=== PATIENT | female | born 1935 | race Caucasian/White ===

== ENCOUNTER 2016-10-17 13:31 | Observation (INO) | payer OTHER ==
[2016-10-17 13:53] LABS: BASOPHILS % 0.2 (0.0-1.5); EOSINOPHILS % 1.3 % (0.0-6.8); LYMPHOCYTES # 1.4 # k/uL (0.6-4.0); MONOCYTES # 0.3 # k/uL (0.0-0.9); MONOCYTES % 4.3 % (0.0-11.0); NEUTROPHILS # 5.2 # k/uL (1.4-7.7)
--- NOTE | 2016-10-17 14:02 | ED Physician Documentation ---
General Adult - HISTORIAN Historian: patient - HPI Chief Complaint: Neurological Deficits Additional Information: 81 yo F here for lightheadedness, numbness of UE/LE, subjective weakness to LE, L shoulder and neck pain. Symptoms started as neck pain last week, saw PCM and told to do stretches but symptom has persisted. She had mild symptoms yesterday afternoon that resolved spontaneously after 15-20min. She started to have symptoms today at about 1230. Shoulder symptoms described more as a numbness, whereas L neck has pain, dull ache. She does feel somewhat lightheaded, but denies SOB, CP, palpitations. She does have subjective weakness in b/l LE but has been ambulatory without difficulty. She has no dysarthria, confusion, LEHMAN. She has been well recently, no f/c/n/v/d. She has not fallen, denies trauma. She has had this dizziness in the past, she thinks about 6 mos ago, but never had the other symptoms before. Medical history includes HTN, HLP, breast CA s/p lumpectomy and radiation 5 years ago, no recurrence. No history of cardiac disease, stroke, blood clots, PE. All other systems reviewed and negative except per HPI. Timing: still present - ROS CONST: weakness EYES/ENT: none. denies: problems with vision, nasal congestion CVS/RESP: denies: chest pain, shortness of breath, cough GI/: denies: abdominal pain, problems urinating, vomiting, nausea, diarrhea MS/SKIN/LYMPH: neck pain. denies: calf pain, joint pain, leg swelling, leg pain NEURO/PSYCH: dizziness, tingling, numbness. denies: headache, fainting, difficulty walking, difficulty with speech - PAST HX Past History: other (HTN, HLP, Breast CA) Surgeries/Procedures: other (lumpectomy) Allergies/Adverse Reactions: Allergies Allergy/AdvReac Type Severity Reaction Status Date / Time Sulfa (Sulfonamide Allergy Verified 10/17/16 13:48 Antibiotics) Home Medications: Ambulatory Orders Medication Instructions Recorded Tamoxifen Citrate 20 mg PO DAILY u2 04/23/13 - SOCIAL HX Smoking History: non-smoker Alcohol Use: none Drug Use: none - FAMILY HX Family History: No - REVIEWED ASSESSMENTS Nursing Assessment Reviewed: Yes Vitals Reviewed: Yes ED Results Lab/Radiology - Lab Results Lab Results: Lab Results 10/17/16 13:45 WBC 7.10 K/ul K/ul (4.00-12.00) RBC 4.58 M/ul M/ul (3.90-5.20) Hgb 13.8 g/dL g/dL (12.0-16.0) Hct 41.0 % % (34.5-46.5) MCV 89.5 fl fl (80.0-100.0) MCH 30.0 pg pg (28.0-34.0) MCHC 33.6 g/dL g/dL (30.0-36.0) RDW 12.9 % % (11.3-14.3) Plt Count 193 K/mm3 K/mm3 (130-400) Neut % (Auto) 73.5 % % (39.0-79.0) Lymph % (Auto) 19.1 % % (16.0-50.0) [place] % (Auto) 4.3 % % (0.0-11.0) Eos % (Auto) 1.3 % % (0.0-6.8) Baso % (Auto) 0.2 (0.0-1.5) Neut # 5.2 # k/uL # k/uL (1.4-7.7) Lymph # 1.4 # k/uL # k/uL (0.6-4.0) Hartley # 0.3 # k/uL # k/uL (0.0-0.9) Eos # 0.1 # k/uL # k/uL (0.0-0.6) Baso # 0.0 # k/uL # k/uL (0.0-0.5) Reactive Lymphs % 1.6 % % (0.0-5.0) Reactive Lymphs # 0.1 # k/uL # k/uL (0.0-0.8) - Radiology Radiology Impressions: EKG: sinus at 99bpm. Normal axis, normal intervals. No ectopy. Biphasic T waves V3/4/5. No ST elevation, depression. CXR: neg CT head: neg - Orders Orders: ED Orders Category Date Time Status CHEST 2 VIEW [CHEST P.A.&LAT 2 VIEWS] [RAD] Stat Exams 10/17/16 13:[address] BRAIN W/O CONTRAST Stat Exams 10/17/16 Ordered CBC/PLATELET/DIFF Stat Lab 10/17/16 13:45 Completed CMP [CMP] Routine Lab 10/17/16 13:45 Received TROPONIN I (cTnI) Stat Lab 10/17/16 13:45 Received UA [URINALYSIS] Routine Lab 10/17/16 13:39 Ordered EKG WITH COMPARISON Stat Ther 10/17/16 13:39 Completed General Adult Physical Exam - PHYSICAL EXAM GENERAL APPEARANCE: no distress EENT: eye inspection normal, ENT inspection normal, pharynx normal, other ( horizontal nystagmus b/l biderectional, no vertical nystagmus.) NECK: normal inspection, thyroid normal. No: lymphadenopathy RESPIRATORY: no resp distress, chest non-tender, breath sounds normal CVS: reg rate & rhythm, heart sounds normal, equal pulses, no murmur ABDOMEN: soft, no organomegaly, normal bowel sounds, no distension, non-tender SKIN: warm/dry, normal color. No: diaphoresis EXTREMITIES: non-tender, no evidence of injury, no edema NEURO: oriented X3, CN's nml as tested, motor nml, sensation nml, mood/affect nml, cognition normal, other (normal reflexes UE/LE). No: disoriented, weakness /sensory loss, speech/cognition abnml, facial droop, sensory/motor deficit Discharge Clincal Impression: Neck pain, Numbness and tingling in both hands, Lightheaded Shoulder pain Qualifiers: Laterality: left Chronicity: acute Qualified Code(s): M25.512 - Pain in left shoulder Lower extremity weakness Qualifiers: Laterality: bilateral Qualified Code(s): R29.898 - Other symptoms and signs involving the musculoskeletal system Referrals: Mariah Ly MD [Primary Care Provider] - 2 Days Home Medications: Ambulatory Orders Tamoxifen Citrate 20 mg PO DAILY u2 04/23/13 Condition: Good Disposition: 09 ADMITTED INPATIENT Decision to Admit: [id number] Decision Time: 16:20
[2016-10-17 14:15] LABS: eGFR (African) > 60; eGFR (Non-African) > 60
--- NOTE | 2016-10-17 14:33 | Diagnostic Imaging Report ---
[facility] [address] [facility].[address] [address] Report Submission Date: Oct 17, 2016 2:16:30 PM GEOMORPHOLOGY TEACHER Patient Study Name: MACY BLANCAS Date: Oct 17, 2016 2:02:49 PM GEOMORPHOLOGY TEACHER Modality Type: CR Gender: F Description: CHEST : 33 Institution: [facility] Physician PUMA VENTURA - ER Chest -two views CLINICAL HISTORY: Lower extremity weakness and numbness. Dizziness and blurred vision. FINDINGS: Examination of the chest PA and lateral views demonstrates the lungs to be hyperinflated but clear. Cardiac silhouette is within normal limits and the aorta is atherosclerotic and tortuous. Bony thorax is intact. Monitor leads superimpose the chest. IMPRESSION: Hyperinflation. Aortic atherosclerosis. Electronically signed on Oct 17, 2016 2:16:30 PM GEOMORPHOLOGY TEACHER by: Jay HEIN
--- NOTE | 2016-10-17 14:34 | Diagnostic Imaging Report ---
[facility] [address] [facility] [address] [place] [address]. [id number] Report Submission Date: Oct 17, 2016 2:15:34 PM MINISTER OF RELIGION Patient Study Name: MACY BLANCAS Date: Oct 17, 2016 1:54:45 PM MINISTER OF RELIGION Modality Type: CT\SR Gender: F Description: CT BRAIN W/O CONTRAST : 34 Institution: [facility] Physician [facility]MA [facility]UR[facility] - TWAN Head CT without contrast CLINICAL HISTORY: Lower extremity weakness and numbness. Dizziness and blurred vision. TECHNIQUE: CT examination of the brain is performed in contiguous axial slices without the use of contrast. Sagittal and coronal reconstructions are performed by the technologist. FINDINGS: 4th ventricle lies in a normal midline position. The ventricles and sulci are within normal limits. There is no hypodense or hyperdense mass or midline shift. There is no evidence of intracranial hemorrhage. Intracranial atherosclerosis is demonstrated. Visualized paranasal sinuses and the mastoid air cells are clear. IMPRESSION: Intracranial atherosclerosis. No acute intracranial changes. Electronically signed on Oct 17, 2016 2:15:34 PM MINISTER OF RELIGION by: Jay HEIN
[2016-10-17] MEDS ORDERED: ASPIRIN 325 MG TABLET PO ONE (14:52)
[2016-10-17] MEDS ORDERED: 0.9 % SODIUM CHLORIDE 250 ML IV.SOLN IV STA (14:56)
[2016-10-17] MEDS ORDERED: 0.9 % SODIUM CHLORIDE 1,000 ML IV ONE (14:57)
[2016-10-17] MEDS ORDERED: 0.9 % SODIUM CHLORIDE 500 ML IV SCH (15:00)
[2016-10-17 15:12] LABS: APPEARANCE,URINE Clear (CLEAR); COLOR,URINE Yellow (YELLOW); OCCULT BLOOD,URINE Trace-intact (NEGATIVE); PH URINE 8.5 (5.0 - 8.0); UROBILINOGEN URINE 0.2 Eu (0.2-1.0)
[2016-10-17] MEDS: ENOXAPARIN SODIUM 30 MG/0.3 ML DISP.SYRIN SQ SCH (18:02)
[2016-10-17 18:10] VITALS: BMI 49.1
--- NOTE | 2016-10-17 19:06 | History and Physical Report ---
History of Present Illnes - History of Present Illness Reason for Visit: Intermittent left hemiparesis, chest pain History of Present Illness: This is an 81 year old female who is admitted with intermittent left arm numbness and tingling as well as some loss of motor function over the past day or so. She says that she had some difficulty with moving her left arm and that this lasted long enough that she thought that she should go to the ER to have it checked out. She has no history of CAD and no history of cerebral ischemia. Her CT scan in the ER showed only arteriosclerosis, but no ischemic changes. Her symptoms have now largely resolved, other than some chest discomfort which she describes as more of a pressure than pain. She denies any diaphoresis or radiation of the pain. - Past Medical History Cardiac: HTN. denies: AFIB, CAD, CHF, IA Pulmonary: denies: Asthma, Bronchitis METAL BONDER: denies: Dementia Gastrointestinal: GERD. denies: Constipation, Diverticulosis Heme/Onc: Other (Breast cancer). denies: Anemia NOS, B12 deficiency Hepatobiliary: denies: Cirrhosis, Cholelithiasis Psych: denies: Anxiety, Addictions, Bipolar Musculoskeletal: Osteoarthritis Rheumatologic: denies: Fibromyalgia Infectious Disease: denies: Other ENT: denies: Sinusitis Renal/: denies: Chronic renal insuff Endocrine: denies: Diabetes, Hyperthyroidism Dermatology: denies: Eczema - Past Surgical History Past Surgical History: Other (right lumpectomy) - Past Social History Smoke: No Alcohol: None Lives: Alone (multiple family members nearby) - Health Maintenance Health Maintenance: Cholesterol Influenza Vaccine: Current for this Influenza Season Pneumonia Vaccine: Yes Resuscitation Status: Resusciation Status Resuscitation Status Full Code - Unable to Obtain History Unable to Obtain: No Review of Systems - Review of Systems Constitutional: negative: Fever, Chills Eyes: negative: vision change ENT: negative: Ear Pain, Ear Discharge Respiratory: negative: Cough, Shortness of Breath Cardiovascular: Chest Pain (as described in HPI) Gastrointestinal: negative: Nausea, Vomiting, Abdominal Pain Genitourinary: negative: Dysuria Musculoskeletal: Shoulder Pain (resolved). negative: Neck Pain Skin: negative: Rash Neurological: Weakness, Numbness, Incoordination. negative: Change in Speech, Confusion, Seizures - Medications/Allergies Allergies/Adverse Reactions: Allergies Allergy/AdvReac Type Severity Reaction Status Date / Time Sulfa (Sulfonamide Allergy Verified 10/17/16 13:48 Antibiotics) Current Inpatient Medications: Current Inpatient Medications Amlodipine Besylate (Norvasc) 5 mg PO DAILY [facility] Enoxaparin Sodium (Lovenox) 30 mg SQ Q12H BESSY Stop: 10/24/16 05:01 Last Admin: 10/17/16 18:02 Dose: 30 mg Miscellaneous (Tamoxifen Citrate) 20 mg PO DAILY [facility] Pravastatin Sodium (Pravachol) 20 mg PO DAILY [facility] Sodium Chloride (Sodium Chloride) 500 ml IV STAT STA Stop: 10/17/16 14:57 Exam - Exam Vital Signs: Vital Signs (72 hours) 10/17/16 10/17/16 16:43 18:00 Temperature 98.1 F 98.1 F Pulse Rate [ 82 80 Pulse ox] Respiratory 16 16 Rate Blood Pressure 141/59 137/75 [Right Arm] O2 Sat by Pulse 98 98 Oximetry General: Alert, Oriented to Person, Oriented to Place, Oriented to Time, Cooperative, No acute distress HEENT: Atraumatic, PERRLA, EOMI, Mouth Mucous membr. moist/[place]. No: Photophobia, Ptosis Neck: Other. No: Stridor Carotids: No bruits Thyroid: No masses Lungs: Clear to auscultation, Normal air movement, Speaks full Sentences. No: Respiratory Distress, Wheezes, Rales Cardiovascular: Regular rate, Normal S1, Normal S2 Murmur: No: Systolic Murmur Abdomen: Normal bowel sounds, Soft, No tenderness, No hepatospenomegaly, No masses Genitourinary: No: Right Inguinal Hernia, Left Inguinal Lymph Male Genitourinary: No: Other Female Genitourinary: No: Prolapse Integumentary: Normal, [place], Warm, Dry Extremities: No clubbing, No cyanosis, No edema Neurological: Normal speech, Strength Equal Bilat, Reflexes 2+ (possibly slightly more brisk at the left biceps and patella) Psych/Mental Status: Mental status NL, Mood NL, Appropriate Affect - Laboratory Results Laboratory Results: Troponins/CT head/CMP/CBC are unremarkable so far Assessment/Plan - Assessment/Plan (1) TIA (transient ischemic attack) Status: Acute Current Visit: Yes Assessment: Check Plan: Admit for observation Carotid dopplers in the am (2) Chest pain Status: Acute Current Visit: Yes Assessment: Nearly resolved Possibly GERD (3) Numbness and tingling in both hands Status: Acute Current Visit: Yes Assessment: Improved (4) Shoulder pain Status: Acute Current Visit: Yes Qualifiers: Laterality: left Chronicity: acute Qualified Code(s): M25.512 - Pain in left shoulder Assessment: Resolved VTE Assessment - RISK FACTOR SCORE VTE RISK FACTOR SCORES: AGE 40-60 YEARS, ANTICIPATED BED CONFINEMENT OR IMMOBILIZATION > 24 HOURS (On lovenox)
[2016-10-18] MEDS: ENOXAPARIN SODIUM 30 MG/0.3 ML DISP.SYRIN SQ SCH ×2 (05:41→17:17)
--- NOTE | 2016-10-18 08:28 | Inpatient Progress Note ---
Subjective - Required Recertification Statement I anticipate X number of days because-include discharge plan: 1 - Review of Systems Events since last encounter: Mariajose says that her left arm symptoms have resolved. She is feeling much better. Her chest pressure has also resolved. She is about to have her carotid dopplers done. General: Denies: Chills HEENT: Denies: Head Aches Pulmonary: Denies: Dyspnea, Cough Cardiovascular: Denies: Chest Pain Gastrointestinal: Denies: Nausea, Vomiting Genitourinary: Denies: Dysuria, Frequency Musculoskeletal: Denies: Neck Pain Neurological: Other (vertigo is improved) Objective - Exam Vitals and I&O: Vital Signs Temp 97.8 F 10/18/16 06:00 Pulse 65 10/18/16 05:00 Resp 20 10/18/16 06:00 BP 127/54 10/18/16 06:00 Pulse Ox 98 10/18/16 06:00 Intake & Output 10/17/16 10/17/16 10/18/16 11:59 23:59 11:59 Intake Total 240 Balance 240 Weight 51.71 kg Intake: Oral 240 Other: Voiding Method Toilet # Voids 2 General: Alert, Oriented to Person, Oriented to Place, Oriented to Time, Cooperative, No acute distress HEENT: Atraumatic, PERRLA, EOMI Neck: Supple, No JVD Lungs: No: Respiratory Distress Cardiovascular: Regular rate Abdomen: Soft, No tenderness Extremities: No clubbing, No cyanosis Skin: Normal, [place] Neurological: Normal speech Psych/Mental Status: Intact Judgment - Results Results: Laboratory Results WBC 7.10 K/ul (4.00-12.00) 10/17/16 13:45 RBC 4.58 M/ul (3.90-5.20) 10/17/16 13:45 Hgb 13.8 g/dL (12.0-16.0) 10/17/16 13:45 Hct 41.0 % (34.5-46.5) 10/17/16 13:45 MCV 89.5 fl (80.0-100.0) 10/17/16 13:45 MCH 30.0 pg (28.0-34.0) 10/17/16 13:45 MCHC 33.6 g/dL (30.0-36.0) 10/17/16 13:45 RDW 12.9 % (11.3-14.3) 10/17/16 13:45 Plt Count 193 K/mm3 (130-400) 10/17/16 13:45 Neut % (Auto) 73.5 % (39.0-79.0) 10/17/16 13:45 Lymph % (Auto) 19.1 % (16.0-50.0) 10/17/16 13:45 [place] % (Auto) 4.3 % (0.0-11.0) 10/17/16 13:45 Eos % (Auto) 1.3 % (0.0-6.8) 10/17/16 13:45 Baso % (Auto) 0.2 (0.0-1.5) 10/17/16 13:45 Neut # 5.2 # k/uL (1.4-7.7) 10/17/16 13:45 Lymph # 1.4 # k/uL (0.6-4.0) 10/17/16 13:45 Bucks # 0.3 # k/uL (0.0-0.9) 10/17/16 13:45 Eos # 0.1 # k/uL (0.0-0.6) 10/17/16 13:45 Baso # 0.0 # k/uL (0.0-0.5) 10/17/16 13:45 Reactive Lymphs % 1.6 % (0.0-5.0) 10/17/16 13:45 Reactive Lymphs # 0.1 # k/uL (0.0-0.8) 10/17/16 13:45 Sodium 138 mmol/L (136-145) 10/17/16 13:45 Potassium 3.4 mmol/L (3.5-5.0) L 10/17/16 13:45 Chloride 102 mmol/L (98-110) 10/17/16 13:45 Carbon Dioxide 26 mmol/L (20-32) 10/17/16 13:45 BUN 17 mg/dL (10-26) 10/17/16 13:45 Creatinine 0.6 mg/dL (0.4-1.5) 10/17/16 13:45 Estimated Creat Clear 69 10/17/16 13:45 Est GFR ( Amer) > 60 (60-) 10/17/16 13:45 Est GFR (Non-Af Amer) > 60 (60-) 10/17/16 13:45 Glucose 127 mg/dL (70-99) H 10/17/16 13:45 Calcium 9.6 mg/dL (8.5-10.5) 10/17/16 13:45 Total Bilirubin 0.4 mg/dL (0.2-1.2) 10/17/16 13:45 AST 21 U/L (0-41) 10/17/16 13:45 ALT 15 U/L (0-45) 10/17/16 13:45 Alkaline Phosphatase 55 U/L (46-116) 10/17/16 13:45 Troponin I < 0.03 ng/mL (0.03-0.06) L 10/17/16 21:04 Total Protein 7.1 g/dL (6.0-8.5) 10/17/16 13:45 Albumin 4.6 g/dL (3.0-5.5) 10/17/16 13:45 Urine Color Yellow (YELLOW) 10/17/16 15:05 Urine Appearance Clear (CLEAR) 10/17/16 15:05 Urine pH 8.5 (5.0 - 8.0) 10/17/16 15:05 Ur Specific [place] 1.015 (1.010-1.030) 10/17/16 15:05 Urine Protein Negative mg/dL (NEGATIVE) 10/17/16 15:05 Urine Ketones Negative mg/dL (NEGATIVE) 10/17/16 15:05 Urine Occult Blood Trace-intact (NEGATIVE) 10/17/16 15:05 Urine Nitrite Negative (NEGATIVE) 10/17/16 15:05 Urine Bilirubin Negative (NEGATIVE) 10/17/16 15:05 Urine Urobilinogen 0.2 Eu (0.2-1.0) 10/17/16 15:05 Ur Leukocyte Esterase Negative (NEGATIVE) 10/17/16 15:05 Urine Glucose Negative mg/dL (NEGATIVE) 10/17/16 15:05 Assessment/Plan - Assessment/Plan (1) TIA (transient ischemic attack) Status: Acute Current Visit: Yes Assessment: With symptoms nearly resolved Plan: Check dopplers today (2) Chest pain Status: Acute Current Visit: Yes Assessment: Resolved and with negative troponins (3) Numbness and tingling in both hands Status: Acute Current Visit: Yes Assessment: Improved (4) Shoulder pain Status: Acute Current Visit: Yes Qualifiers: Laterality: left Chronicity: acute Qualified Code(s): M25.512 - Pain in left shoulder Assessment: Resolved
[2016-10-18] MEDS ORDERED: amLODIPine BESYLATE 5 MG TABLET PO SCH (09:00)
[2016-10-18] MEDS ORDERED: TAMOXIFEN 20 MG PO SCH (09:00)
[2016-10-18] MEDS ORDERED: PRAVASTATIN SODIUM 20 MG TABLET PO SCH (09:00)
[2016-10-18 13:47] VITALS: BP 131/64
--- NOTE | 2016-10-18 15:24 | Diagnostic Imaging Report ---
[facility] [address] [facility].[address] [address] Report Submission Date: Oct 18, 2016 2:45:16 PM WELL LOGGING CAPTAIN Patient Study Name: JERRI BLANCAS Date: Oct 18, 2016 9:59:05 AM WELL LOGGING CAPTAIN Modality Type: US Gender: F Description: DPLX SCN XTRCRAN ART CMP RAMESH : 33 Institution: [facility] Physician: HALLIE BILLY/YAZMIN SURG Ultrasound of the carotid arteries in the neck CLINICAL HISTORY: Dizziness left arm weakness Technique duplex ultrasonography and color Doppler was performed of the carotid arteries in the neck FINDINGS: Atherosclerotic plaque is identified in the common carotid arteries and carotid bulbs. This plaque is predominantly hypoechoic. The plaque extends into the proximal right internal carotid artery. Right vertebral artery blood flow is antegrade. There is mild elevation of the right internal carotid artery peak flow velocity within normal ratio consistent with tortuosity. The left carotid artery shows similar findings without the tortuosity or peak flow velocity elevation. Left vertebral artery blood flow is antegrade. Incidental note is made of a 2 cm right lobe of the thyroid nodule. The right ICCC ratio is 1.0 and the left is 0.7 IMPRESSION: 16 to 49% bilateral carotid artery stenosis with tortuosity in the right internal carotid artery Bilateral antegrade vertebral artery blood flow Electronically signed on Oct 18, 2016 2:45:16 PM WELL LOGGING CAPTAIN by: David HEIN
[2016-10-19] MEDS ORDERED: SIMVASTATIN 20 MG TABLET PO SCH (09:00)
--- NOTE | 2016-10-20 09:30 | Discharge Summary ---
DATE OF ADMISSION: October 17, 2016 DATE OF DISCHARGE: October 18, 2016 DIAGNOSES ON THIS HOSPITALIZATION: 1. Transient ischemic attack (TIA). 2. Chest pain. SUMMARIZATION OF ADMISSION HISTORY AND PHYSICAL: This is an 81-year-old female who presented with increasing weakness and numbness and tingling of both of her arms. She has never had this before and felt like her coordination was not very good and she came to the emergency for an evaluation. A CT of her head was done at that time which showed some arteriosclerosis but no other acute changes. Her labs were essentially unrevealing. Her troponin's were negative. Her EKG showed no evidence of any ischemia. Her symptoms resolved without sequelae. She did have carotid Doppler 's done which showed no critical stenosis and that was done on October 18, 2016. She was discharged to home then with continuation of the following medications. MEDICATIONS ON DISCHARGE: 1. Tamoxifen 20 mg daily. 2. Amlodipine 5 mg daily. 3. Pravastatin 20 mg daily. 4. I added aspirin 81 mg daily. DISCHARGE INSTRUCTIONS: Follow up with Dr. Malin next week. We will make a referral to Neurology and see how she has done in the meantime. MELVINA
== END 2016-10-18 17:50 | disposition home or self-care (01) ==
LOC: ED 13:31 → SOUTH 16:40 → INTOOBSV 16:40
PROVIDERS: ADMIT Family Medicine; ATTEND Family Medicine
DX: G45.9 Transient cerebral ischemic attack, unspecified (principal); R07.89 Other chest pain
CPT/HCPCS: 70450; 71020; 80053; 81002; 84484; 85025; 93005; 93880; A9270; G0378; J1650; J7030; 96361; 96374; 99284; G0379; S1016

== ENCOUNTER 2018-06-25 10:00 | Emergency (ER) | payer OTHER ==
--- NOTE | 2018-06-25 10:34 | ED Physician Documentation ---
Lower Extremity Injury - HISTORIAN Historian: patient - HPI Stated Complaint: RLE pain Chief Complaint: Lower Extremity Problem Onset: days ago (5) Where: home Severity: moderate Context: fall (over 2 weeks ago ) Associated Symptoms:: denies: tingling, numbness distally, swelling, snapping sensation, popping sensation, unable to bear weight Modifying Factors:: pain on movement - ROS CONST: no problems CVS/RESP: none GI/: denies: problems urinating, nausea, vomiting MS/SKIN/LYMPH: denies: neck pain, back pain, foot swelling, ankle swelling, rash NEURO: denies: headache, head injury - PAST HX Past History: other (HTN, hyperlipidemia ) Immunizations: UTD Allergies/Adverse Reactions: Allergies Allergy/AdvReac Type Severity Reaction Status Date / Time Sulfa (Sulfonamide Allergy Verified 06/25/18 10:24 Antibiotics) Home Medications: Ambulatory Orders Medication Instructions Recorded Aspirin [Adult Aspirin Regimen] 81 mg PO DAILY 06/25/18 - SOCIAL HX Smoking History: non-smoker Alcohol Use: none Drug Use: none - FAMILY HX Family History: none - VITAL SIGNS Vital Signs: Vital Signs Temp Pulse Resp BP Pulse Ox 98.0 F 73 14 149/71 96 06/25/18 11:55 06/25/18 11:55 06/25/18 11:55 06/25/18 11:55 06/25/18 11:55 - REVIEWED ASSESSMENTS Nursing Assessment Reviewed: Yes Vitals Reviewed: Yes Progress - Progress Progress: 1140: Discussed results and plan with pt and son. Both agreeable DG ED Results Lab/Radiology - Radiology Radiology Impressions: Examination: Plain film right femur History: PT STATES FALL X 2 DAYS AGO AFTER TRIPPING OVER A CAT. PT STATES PAIN WITH WEIGHT BEARING. (Hx) Comparison exams: None provided Findings: 4 views of the right femur demonstrate normal cortical margins. No fracture no dislocation. No soft tissue abnormality. Impression: No acute osseous abnormality. Electronically signed on Jun 25, 2018 11:21:48 AM CDT by: Jacek Love Examination: Plain film right knee History: PT STATES FALL X 2 DAYS AGO AFTER TRIPPING OVER A CAT. PT STATES PAIN WITH WEIGHT BEARING. (Hx) Findings: 3 views of the right knee demonstrates normal cortical margins. No fracture. No dislocation. No joint effusion. No soft tissue irregularity. Impression: No acute osseous abnormality Electronically signed on Jun 25, 2018 11:20:56 AM CDT by: Jacek Love Examination: Plain film right hip History: PT STATES FALL X 2 DAYS AGO AFTER TRIPPING OVER A CAT. PT STATES PAIN WITH WEIGHT BEARING. (Hx) Comparison exams: None provided Findings: 2 views of the right hip demonstrate normal cortical margins. Mild acetabular spurring. No fracture no dislocation. No soft tissue abnormality. Impression: No acute osseous abnormality. Electronically signed on Jun 25, 2018 11:22:46 AM CDT by: Jacek Love - Orders Orders: ED Orders Category Date Time Status KNEE JOINT XRAY 3V [KNEE 3 VIEWS] [RAD] Stat Exams 06/25/18 Completed RT FEMUR 2 VIEWS [RAD] Stat Exams 06/25/18 10:25 Completed RT HIP 2VIEW COMPLETE [RAD] Stat Exams 06/25/18 10:25 Completed Ketorolac Tromethamine [Toradol] Med 06/25/18 11:34 Discontinued 30 mg IM NOW ONE Lower Extremities Injury Phy - Physical Exam General Appearance: no acute distress, alert Hips: right hip: bone tenderness, pain, soft tissue tenderness, left hip: non- tender, normal inspection, bilateral hip: normal range of motion, no evidence of injury, N/A: deformity, ecchymosis, swelling, other Legs: right: bone tenderness, pain, soft tissue tenderness, left: non-tender, bilateral: normal inspection, normal range of motion, no evidence of injury, N/A: limited range of motion, swelling Knees: right: bone tenderness, pain, soft tissue tenderness, left: non-tender, normal inspection, normal range of motion, bilateral: no evidence of injury, N/A: deformity, swelling Ankle: bilateral: non-tender, normal inspection, normal range of motion, no evidence of injury, abrasions/laceration Foot: bilateral foot: non-tender, normal inspection, normal range of motion, no evidence of injury Gait: limited by pain Neuro/Vascular/Tendon: no vascular compromise Head/ENT: nml inspection Neck/Back: nml inspection, non-tender Resp/CVS: chest non-tender, breath sounds nml, heart sounds nml, no resp. distress, lungs clear, reg. rate & rhythm Abdomen: non-tender Discharge Clincal Impression: Leg pain Qualifiers: Laterality: right Qualified Code(s): M79.604 - Pain in right leg Referrals: Rebel Escoto MD [Primary Care Provider] - 2 Days Additional Instructions: 1. Continue with OTC meds for pain 2. Follow up with PCP for possible MRI 3. Tramadol 50 mg take 1 by mouth every 8 hours as needed for pain 4. Return to ER for any concerns Condition: Stable Disposition: 01 HOME, SELF-CARE Decision to Admit: NO Date of Decison to Admit: 06/25/18 Decision Time: 11:50
[2018-06-25] MEDS: KETOROLAC TROMETHAMINE 30 MG/1ML VIAL IM ONE (11:45)
[2018-06-25 11:57] VITALS: BP 149/71
--- NOTE | 2018-06-25 13:52 | Diagnostic Imaging Report ---
ELADIO JESUS [facility] [address] [facility].[address] [address] Report Submission Date: Jun 25, 2018 11:21:48 AM CDT Patient Study Name: JERRI BLANCAS Date: Jun 25, 2018 10:36:24 AM CDT Modality Type: DX Gender: F Description: FEMUR : 33 Institution: [facility] Physician: ELADIO JESUS Examination: Plain film right femur History: PT STATES FALL X 2 DAYS AGO AFTER TRIPPING OVER A CAT. PT STATES PAIN WITH WEIGHT BEARING. (Hx) Comparison exams: None provided Findings: 4 views of the right femur demonstrate normal cortical margins. No fracture no dislocation. No soft tissue abnormality. Impression: No acute osseous abnormality. Electronically signed on Jun 25, 2018 11:21:48 AM CDT by: Jacek HEIN
--- NOTE | 2018-06-25 13:53 | Diagnostic Imaging Report ---
ELADIO JESUS [facility] [address] [facility] [address] [address] Report Submission Date: Jun 25, 2018 11:22:46 AM CDT Patient Study Name: JERRI BLANCAS Date: Jun 25, 2018 10:29:02 AM CDT Modality Type: DX Gender: F Description: PELVIS : 33 Institution: [facility] Physician: ELADIO JESUS Examination: Plain film right hip History: PT STATES FALL X 2 DAYS AGO AFTER TRIPPING OVER A CAT. PT STATES PAIN WITH WEIGHT BEARING. (Hx) Comparison exams: None provided Findings: 2 views of the right hip demonstrate normal cortical margins. Mild acetabular spurring. No fracture no dislocation. No soft tissue abnormality. Impression: No acute osseous abnormality. Electronically signed on Jun 25, 2018 11:22:46 AM CDT by: Jacek HEIN
--- NOTE | 2018-06-25 13:55 | Diagnostic Imaging Report ---
ELADIO JESUS [facility] [address] [facility].[address] [address] Report Submission Date: Jun 25, 2018 11:20:56 AM CDT Patient Study Name: JERRI BLANCAS Date: Jun 25, 2018 10:34:44 AM CDT Modality Type: DX Gender: F Description: LOWER EXTREMITY : 33 Institution: [facility] Physician: ELADIO JESUS Examination: Plain film right knee History: PT STATES FALL X 2 DAYS AGO AFTER TRIPPING OVER A CAT. PT STATES PAIN WITH WEIGHT BEARING. (Hx) Findings: 3 views of the right knee demonstrates normal cortical margins. No fracture. No dislocation. No joint effusion. No soft tissue irregularity. Impression: No acute osseous abnormality Electronically signed on Jun 25, 2018 11:20:56 AM CDT by: Jacek HEIN
== END 2018-06-25 11:55 | disposition home or self-care (01) ==
LOC: ED 10:00
DX: M79.604 Pain in right leg (principal)
CPT/HCPCS: 73502; 73552; 73562; J1885; 96372

== ENCOUNTER 2018-08-02 13:17 | Outpatient (CLI) | payer OTHER ==
--- NOTE | 2018-08-03 05:08 | Diagnostic Imaging Report ---
AYAZ BETTENCOURT [facility] [address] [facility] [address] 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 PT STATES SHE HAD A FALL IN MAY BUT IT WAS FEELING BETTER AFTER THE FALL (Hx) Findings: 3 views of the right knee demonstrates normal cortical margins. No fracture. No dislocation. No joint effusion. No soft tissue irregularity. Impression: No acute osseous abnormality Electronically signed on Aug 02, 2018 2:43:53 PM BIOCHEMICAL DEVELOPMENT ENGINEER by: Jacek HEIN
== END 2018-08-02 13:20 ==
LOC: RAD 13:17
PROVIDERS: ATTEND Family Medicine
DX: M89.8X6 Other specified disorders of bone, lower leg (principal)
CPT/HCPCS: 73562